=== PATIENT | male | born 1975 | race Caucasian/White ===

== ENCOUNTER 2020-03-03 20:32 | Emergency (ER) | payer SELFPAY ==
[2020-03-03] MEDS ORDERED: methylPREDNISolone Sodium Succinate 125 MG/2 ML SDV IM ONE (21:02)
--- NOTE | 2020-03-03 21:06 | EDM.PDOC ---
ED HPI GENERAL MEDICAL PROBLEM - General Chief Complaint: Skin Complaint Stated Complaint: POISON SUDHAKAR ON ARMS Time Seen by Provider: 03/03/20 20:45 Source of Information: Reports: Patient, RN Notes Reviewed History Limitations: Reports: No Limitations - History of Present Illness INITIAL COMMENTS - FREE TEXT/NARRATIVE: 44-year-old gentleman presents emergency department today with exposure to poison sudhakar he works as supervisor lead [employer] he believes he was exposed to this about 4 days prior he has multiple linear lesions as well as large patches on both forearms he states it is quite itchy and it has been weeping - Related Data Allergies Allergy/AdvReac Type Severity Reaction Status Date / Time No Known Allergies Allergy Verified 03/03/20 20:47 Home Meds: Home Meds cephALEXin [Keflex] 500 mg PO TID #21 cap 03/03/20 [Rx] predniSONE [Prednisone] 50 mg PO DAILY #14 tablet 03/03/20 [Rx] Past Medical History - Past Health History Medical/Surgical History: Denies Medical/Surgical History Social & Family History - Tobacco Use Smoking Status *Q: Current Every Day Smoker Years of Tobacco use: 25 Packs/Tins Daily: 0.3 - Caffeine Use Caffeine Use: Reports: Soda - Alcohol Use Days Per Week of Alcohol Use: 3 Number of Drinks Per Day: 4 Total Drinks Per Week: 12 - Recreational Drug Use Recreational Drug Use: No ED ROS GENERAL - Review of Systems Review Of Systems: See Below Constitutional: Reports: No Symptoms Skin: Reports: Pruritis, Rash, Wound ED EXAM, SKIN/RASH Exam: See Below Text/Narrative:: Examination of the forearms multiple linear lines appreciated with vesicles he does have 2 large patches on the inner aspect of both forearms it is erythematous on both forearms concerned about secondary infection consistent with a cellulitis, rash is consistent with poison sudhakar exposure contact dermatitis Exam Limited By: No Limitations General Appearance: Alert, WD/WN, No Apparent Distress Course - Vital Signs Last Recorded V/S: Last Vital Signs Temp 97.9 F 03/03/20 20:49 Pulse 88 03/03/20 20:49 Resp 18 03/03/20 20:49 BP 150/87 H 03/03/20 20:49 Pulse Ox 96 03/03/20 20:49 - Orders/Labs/Meds Meds: Medications Discontinued Medications Generic Name Dose Route Start Last Admin Trade Name Freq PRN Reason Stop Dose Admin Methylprednisolone Sodium Succinate 125 mg 03/03/20 21:02 Solu-Medrol IM 03/03/20 21:03 ONETIME ONE Departure - Departure Time of Disposition: 21:06 Disposition: Home, Self-Care 01 Condition: Fair Clinical Impression: Contact dermatitis due to plant - Discharge Information Prescriptions: cephALEXin [Keflex] 500 mg PO TID #21 cap predniSONE [Prednisone] 50 mg PO DAILY #14 tablet Instructions: Poison Sudhakar Dermatitis Referrals: PCP,None [Primary Care Provider] - Additional Instructions: Take full course of antibiotics, take full course of steroids start both tomorrow follow-up with primary care in 5 to 7 days if no improvement, call return to the emergency department worsening of symptoms Sepsis Event Note - Evaluation Sepsis Screening Result: No Definite Risk - Focused Exam Vital Signs: Vital Signs Temp Pulse Resp BP Pulse Ox 03/03/20 20:49 97.9 F 88 18 150/87 H 96 Date Exam was Performed: 03/03/20 Time Exam was Performed: 21:03 - Assessment/Plan Plan: Assessment Acuity = acute Site and laterality = contact dermatitis concern for secondary cellulitis both forearms Etiology = probable poison sudhakar Manifestations = pruritus Location of injury = Home Lab values = none Plan He was given Solu-Medrol 125 mg IM now and then he will start prednisone 60 mg once a day for 2 weeks also prescription written for Keflex 500 mg p.o. 3 times daily x7 days follow-up primary care in 5-7 days if no improvement This note was dictated using [employer] voice recognition software please call with any questions on syntax or grammar.
== END 2020-03-03 21:15 | disposition home or self-care (01) ==
LOC: JP.ED 20:32
DX: L25.5 Unspecified contact dermatitis due to plants, except food (principal); F17.210 Nicotine dependence, cigarettes, uncomplicated
CPT/HCPCS: 96372; 99283; J2930